=== PATIENT | male | born 1970 | race Hispanic/Latino ===

== ENCOUNTER 2018-01-11 22:03 | Emergency (ER) | payer MEDICARE, OTHER ==
[2018-01-11] MEDS ORDERED: ACETAMINOPHEN EXTRA STRENGTH 500 MG TABLET ONE (22:36)
[2018-01-11] MEDS ORDERED: GABAPENTIN 300 MG CAPSULE ONE (22:39)
[2018-01-11 22:47] LABS: BASOPHILS % (AUTO) 0.3 % (0.0-5.0); EOSINOPHILS % (AUTO) 0.2 % (0.0-8.0); HEMATOCRIT 48.6 % (42-54); MEAN CORPUSCULAR HEMOGLOBIN 28.6 pg (27.0-33.0); MEAN CORPUSCULAR VOLUME 84.3 fL (79-99); MONOCYTES % (AUTO) 10.7 % (3.0-13.0); NEUTROPHILS % (AUTO) 61.8 % (40.0-77.0); PLATELET COUNT (AUTO) 204 K/uL (130-400); RED BLOOD CELL COUNT(AUTO) 5.76 MIL/uL (4.50-6.20); RED CELL DISTRIBUTION WIDTH 16.6 % (11.0-15.5); WHITE BLOOD COUNT (AUTO) 8.8 K/uL (4.8-10.8)
[2018-01-11 22:47] LABS: APPEARANCE,URINE Clear (CLEAR); BILIRUBIN,URINE Negative (NEGATIVE); COLOR,URINE Yellow (YELLOW); GLUCOSE, URINE (UA) 500 mg/dL (NEGATIVE); KETONES,URINE Negative (NEGATIVE); LEUKOCYTE ESTERASE ,URINE Negative (NEGATIVE); NITRATE,URINE Negative (NEGATIVE); OCCULT BLOOD,URINE Negative (NEGATIVE); PH,URINE 6.5 (5.0-8.0); PROTEIN,URINE Negative (NEGATIVE); UROBILINOGEN,URINE 0.2 mg/dL (0.2-1.0)
[2018-01-11 22:54] LABS: BACTERIA,URINE None Seen /HPF (None Seen); RBC,URINE None Seen /HPF (0-1); WBC,URINE None Seen /HPF (0-1)
[2018-01-11 22:55] LABS: AMPHET/METH SCREEN,URINE NEGATIVE (NEGATIVE); BARBITURATE SCREEN, URINE NEGATIVE (NEGATIVE); BENZODIAZEPINES SCREEN,URINE NEGATIVE (NEGATIVE); CANNABINOID SCREEN,URINE NEGATIVE (NEGATIVE); COCAINE SCREEN,URINE NEGATIVE (NEGATIVE); OPIATE SCREEN,URINE NEGATIVE (NEGATIVE); PHENCYCLIDINE SCREEN,URINE NEGATIVE (NEGATIVE)
[2018-01-11 22:58] LABS: CARBON DIOXIDE 24 mmol/L (21-32); CHLORIDE 96 mmol/L (101-111); CREATININE 0.9 mg/dL (0.5-1.5); GLOMERULAR FILTR. RATE CALC 97 mL/min (>60); GLUCOSE,RANDOM 270 mg/dL (70-105); POTASSIUM 3.8 mmol/L (3.5-5.1); SODIUM SERUM 131 mmol/L (136-145); UREA NITROGEN, BLOOD 4 mg/dL (7-18)
[2018-01-11 23:02] LABS: ALANINE AMINOTRANSFERASE 27 U/L (12-78); ALBUMIN 3.4 g/dL (3.5-5.0); ALCOHOL, BLOOD 185 mg/dL (0-10); ASPARTATE AMINOTRANSFERASE 26 U/L (10-37); BILIRUBIN,TOTAL 0.6 mg/dL (0.2-1.0); SALICYLATE 5.8 mg/dL (2.8-20.0); TOTAL PROTEIN, SERUM 8.4 g/dL (6.0-8.3)
[2018-01-11 23:05] LABS: ACETAMINOPHEN < 1 mcg/mL (10-29)
[2018-01-11] MEDS ORDERED: HYDROXYZINE HCL 25 MG TABLET ONE (23:42)
[2018-01-12] MEDS ORDERED: HYDROXYZINE HCL 25 MG TABLET ONE (02:05)
[2018-01-12] MEDS ORDERED: LORAZEPAM 2 MG/ML 1 ML VIAL ONE (05:20)
== END 2018-01-12 10:09 | disposition short-term general hospital (02) ==
LOC: EDH 22:03
DX: R45.851 Suicidal ideations (principal); F10.229 Alcohol dependence with intoxication, unspecified; I10 Essential (primary) hypertension; E11.9 Type 2 diabetes mellitus without complications; F20.9 Schizophrenia, unspecified; F32.9 Major depressive disorder, single episode, unspecified; Z79.4 Long term (current) use of insulin; Z72.0 Tobacco use
CPT/HCPCS: 36415 ×2; 80053; 80305; 81001; 85025; 96374; 99285; G0480 ×4; G0481; J2060

== ENCOUNTER 2018-02-03 16:12 | Emergency (ER) | payer OTHER ==
[2018-02-03 16:37] LABS: BASOPHILS % (AUTO) 0.3 % (0.0-5.0); EOSINOPHILS % (AUTO) 0.4 % (0.0-8.0); LYMPHOCYTES % (AUTO) 24.5 % (21.0-51.0); MEAN CORPUSCULAR HEMOGLOBIN 29.1 pg (27.0-33.0); MEAN CORPUSCULAR HGB CONC 34.3 g/dL (32.0-36.0); MEAN CORPUSCULAR VOLUME 84.8 fL (79-99); MONOCYTES % (AUTO) 9.3 % (3.0-13.0); NEUTROPHILS % (AUTO) 65.5 % (40.0-77.0); PLATELET COUNT (AUTO) 333 K/uL (130-400); RED BLOOD CELL COUNT(AUTO) 4.84 MIL/uL (4.50-6.20); RED CELL DISTRIBUTION WIDTH 16.5 % (11.0-15.5); WHITE BLOOD COUNT (AUTO) 12.4 K/uL (4.8-10.8)
[2018-02-03 16:46] LABS: INR 1.01 (0.85-1.15); PARTIAL THROMBOPLASTIN TIME 26.1 SEC (26.3-35.5); PROTHROMBIN TIME 10.6 SEC (9.6-11.6)
[2018-02-03 16:50] LABS: AMPHET/METH SCREEN,URINE NEGATIVE (NEGATIVE); BARBITURATE SCREEN, URINE NEGATIVE (NEGATIVE); BENZODIAZEPINES SCREEN,URINE POSITIVE (NEGATIVE); CANNABINOID SCREEN,URINE NEGATIVE (NEGATIVE); COCAINE SCREEN,URINE NEGATIVE (NEGATIVE); OPIATE SCREEN,URINE NEGATIVE (NEGATIVE); PHENCYCLIDINE SCREEN,URINE NEGATIVE (NEGATIVE)
== END 2018-02-03 17:10 | disposition left against medical advice (07) ==
LOC: EDH 16:12
DX: S49.82XA Other specified injuries of left shoulder and upper arm, initial encounter (principal); F31.9 Bipolar disorder, unspecified; E11.9 Type 2 diabetes mellitus without complications; I10 Essential (primary) hypertension; K74.60 Unspecified cirrhosis of liver; Z72.0 Tobacco use; Z79.899 Other long term (current) drug therapy; X58.XXXA Exposure to other specified factors, initial encounter; Y93.89 Activity, other specified; Y92.89 Other specified places as the place of occurrence of the external cause; Y99.8 Other external cause status
CPT/HCPCS: 36415; 80305; 85025; 85610; 85730

== ENCOUNTER 2018-02-03 18:31 | Observation (INO) | payer OTHER ==
[~2018-02-03] VITALS: Ht 175.3 cm; Wt 89.6 kg
[2018-02-03 18:59] LABS: BASOPHILS % (AUTO) 0.5 % (0.0-5.0); EOSINOPHILS % (AUTO) 0.8 % (0.0-8.0); HEMATOCRIT 40.9 % (42-54); MEAN CORPUSCULAR HEMOGLOBIN 29.2 pg (27.0-33.0); MEAN CORPUSCULAR HGB CONC 34.4 g/dL (32.0-36.0); MEAN CORPUSCULAR VOLUME 84.8 fL (79-99); MONOCYTES % (AUTO) 7.3 % (3.0-13.0); NEUTROPHILS % (AUTO) 61.4 % (40.0-77.0); NUCLEATED RED BLOOD CELLS 0.1 % (0.0-0.19); PLATELET COUNT (AUTO) 299 K/uL (130-400); RED BLOOD CELL COUNT(AUTO) 4.82 MIL/uL (4.50-6.20); RED CELL DISTRIBUTION WIDTH 16.7 % (11.0-15.5); WHITE BLOOD COUNT (AUTO) 9.2 K/uL (4.8-10.8)
[2018-02-03 19:06] LABS: CARBON DIOXIDE 26 mmol/L (21-32); CHLORIDE 98 mmol/L (101-111); GLOMERULAR FILTR. RATE CALC 86 mL/min (>60); GLUCOSE,RANDOM 196 mg/dL (70-105); POTASSIUM 4.1 mmol/L (3.5-5.1); SODIUM SERUM 134 mmol/L (136-145); UREA NITROGEN, BLOOD 6 mg/dL (7-18)
[2018-02-03 19:08] LABS: ALANINE AMINOTRANSFERASE 24 U/L (12-78); ALBUMIN 3.2 g/dL (3.5-5.0); ASPARTATE AMINOTRANSFERASE 20 U/L (10-37); BILIRUBIN,TOTAL 0.3 mg/dL (0.2-1.0); SALICYLATE 4.9 mg/dL (2.8-20.0); TOTAL PROTEIN, SERUM 7.2 g/dL (6.0-8.3)
[2018-02-03 19:12] LABS: ACETAMINOPHEN < 1 mcg/mL (10-29)
[2018-02-03 19:14] LABS: ALCOHOL, BLOOD 293 mg/dL (0-10)
[2018-02-03] MEDS ORDERED: SODIUM CHLORIDE 0.9% 1000ML 2,000 ML IV ONE (19:19)
[2018-02-03 19:21] LABS: APPEARANCE,URINE Clear (CLEAR); BILIRUBIN,URINE Negative (NEGATIVE); COLOR,URINE Yellow (YELLOW); GLUCOSE, URINE (UA) 500 mg/dL (NEGATIVE); KETONES,URINE Negative (NEGATIVE); LEUKOCYTE ESTERASE ,URINE Negative (NEGATIVE); NITRATE,URINE Negative (NEGATIVE); OCCULT BLOOD,URINE Negative (NEGATIVE); PH,URINE 6.5 (5.0-8.0); PROTEIN,URINE Negative (NEGATIVE); UROBILINOGEN,URINE 0.2 mg/dL (0.2-1.0)
[2018-02-03] MEDS ORDERED: SODIUM CHLORIDE 0.9% 1000ML 1,000 ML IV ONE (19:26)
[2018-02-03] MEDS ORDERED: THIAMINE HCL 100 MG/ML 2ML VIAL ONE (19:26)
[2018-02-03] MEDS ORDERED: M.V.I. IV [ADULT] 10 ML VIAL IV ONE (19:27)
[2018-02-03] MEDS ORDERED: FOLIC ACID 5 MG/ML 10 ML VIAL ONE (19:28)
[2018-02-03 19:59] LABS: BACTERIA,URINE Rare /HPF (None Seen); RBC,URINE None Seen /HPF (0-1); WBC,URINE 0-1 /HPF (0-1)
[2018-02-03] MEDS ORDERED: M.V.I. IV [ADULT] 10 ML, FOLIC ACID 1 MG, THIAMINE HCL 100 MG in SODIUM CHLORIDE 0.9% 1... IV ONE (21:30)
[2018-02-03] MEDS ORDERED: LIDOCAINE HCL-MPF 1% 2ML VIAL IVP PRN (22:45)
[2018-02-03] MEDS ORDERED: POTASSIUM CHLORIDE 10% ELIXIR 20 MEQ/15 ML UDCUP PO PRN (22:45)
[2018-02-03] MEDS ORDERED: GLUCAGON 1MG KIT 1 MG ML IM PRN (22:45)
[2018-02-03] MEDS ORDERED: DEXTROSE 50%-WATER 50 ML DISP.SYRIN IV PRN (22:45)
[2018-02-03] MEDS ORDERED: POTASSIUM CHLORIDE 20MEQ/100ML 100 ML IV PRN (22:45)
[2018-02-03] MEDS ORDERED: POTASSIUM CHLORIDE 20 MEQ ERTAB PO PRN (22:45)
[2018-02-03] MEDS ORDERED: LORAZEPAM 2 MG/ML 1 ML VIAL ONE (22:59)
[2018-02-03 23:36] VITALS: BP 129/73
[2018-02-03] MEDS: CHLORDIAZEPOXIDE HCL 25 MG CAP PO PRN (23:48)
[2018-02-04] MEDS: LORAZEPAM 2 MG/ML 1 ML VIAL IVP PRN ×4 (01:04→17:24)
[2018-02-04 03:50] VITALS: BP 162/90
[2018-02-04 05:22] LABS: CREATININE 0.9 mg/dL (0.5-1.5); POTASSIUM 3.9 mmol/L (3.5-5.1)
[2018-02-04] MEDS: CHLORDIAZEPOXIDE HCL 25 MG CAP PO PRN ×6 (05:49→18:20)
[2018-02-04] MEDS: INSULIN HUMULIN R 100 UNIT/ML 3ML SQ SCH ×3 (05:53→17:23)
[2018-02-04 07:03] VITALS: BP 162/87
[2018-02-04] MEDS ORDERED: ENOXAPARIN SODIUM 40 MG/0.4 ML SYRINGE SQ SCH (09:00)
[2018-02-04] MEDS ORDERED: M.V.I. IV [ADULT] 10 ML, FOLIC ACID 1 MG, THIAMINE HCL 100 MG in SODIUM CHLORIDE 0.9% 1... IV SCH (09:00)
[2018-02-04] MEDS ORDERED: FAMOTIDINE 20MG TAB 20 MG TAB PO ONE (09:00)
[2018-02-04 11:13] VITALS: BP 167/98
[2018-02-04 16:00] VITALS: BP 175/80
== END 2018-02-04 20:00 ==
LOC: EDH 18:31 → EDHIP 20:00 → 4AH 22:33
PROVIDERS: ADMIT Internal Medicine Nephrology; ATTEND Internal Medicine Nephrology
DX: F10.229 Alcohol dependence with intoxication, unspecified (principal); E11.9 Type 2 diabetes mellitus without complications; F17.210 Nicotine dependence, cigarettes, uncomplicated; I10 Essential (primary) hypertension; K74.60 Unspecified cirrhosis of liver; F31.9 Bipolar disorder, unspecified; F20.9 Schizophrenia, unspecified; Z79.4 Long term (current) use of insulin
CPT/HCPCS: 36415 ×3; 80048; 80053; 80305; 81001; 82948 ×3; 85025 ×2; 85610; 85730; 96365; 96366; 96372; 96375; 96376; 99285; G0378 ×24; G0480 ×3; G0481; J1650; J1815 ×2; J2060 ×5; J3411 ×2; J3490 ×2; J7030 ×3

== ENCOUNTER 2018-02-23 19:35 | Emergency (ER) | payer OTHER ==
[2018-02-23 19:56] LABS: BASOPHILS % (AUTO) 0.7 % (0.0-5.0); EOSINOPHILS % (AUTO) 0.9 % (0.0-8.0); HEMATOCRIT 41.5 % (42-54); LYMPHOCYTES % (AUTO) 32.8 % (21.0-51.0); MEAN CORPUSCULAR HEMOGLOBIN 29.7 pg (27.0-33.0); MEAN CORPUSCULAR HGB CONC 34.6 g/dL (32.0-36.0); MEAN CORPUSCULAR VOLUME 85.6 fL (79-99); MONOCYTES % (AUTO) 8.1 % (3.0-13.0); NEUTROPHILS % (AUTO) 57.5 % (40.0-77.0); PLATELET COUNT (AUTO) 218 K/uL (130-400); RED BLOOD CELL COUNT(AUTO) 4.85 MIL/uL (4.50-6.20); RED CELL DISTRIBUTION WIDTH 16.4 % (11.0-15.5); WHITE BLOOD COUNT (AUTO) 8.1 K/uL (4.8-10.8)
[2018-02-23 19:58] LABS: APPEARANCE,URINE Clear (CLEAR); BILIRUBIN,URINE Negative (NEGATIVE); COLOR,URINE Yellow (YELLOW); GLUCOSE, URINE (UA) 500 mg/dL (NEGATIVE); KETONES,URINE Negative (NEGATIVE); LEUKOCYTE ESTERASE ,URINE Negative (NEGATIVE); NITRATE,URINE Negative (NEGATIVE); OCCULT BLOOD,URINE Negative (NEGATIVE); PH,URINE 5.5 (5.0-8.0); PROTEIN,URINE POS 1+ (NEGATIVE)
[2018-02-23 20:05] LABS: AMPHET/METH SCREEN,URINE NEGATIVE (NEGATIVE); BARBITURATE SCREEN, URINE NEGATIVE (NEGATIVE); BENZODIAZEPINES SCREEN,URINE NEGATIVE (NEGATIVE); CANNABINOID SCREEN,URINE NEGATIVE (NEGATIVE); COCAINE SCREEN,URINE NEGATIVE (NEGATIVE); OPIATE SCREEN,URINE NEGATIVE (NEGATIVE); PHENCYCLIDINE SCREEN,URINE NEGATIVE (NEGATIVE)
[2018-02-23 20:07] LABS: BACTERIA,URINE Rare /HPF (None Seen); RBC,URINE None Seen /HPF (0-1); SQUAMOUS EPITHELIAL CELL,UR 0-2 /HPF (0-2); WBC,URINE None Seen /HPF (0-1)
[2018-02-23 20:09] LABS: CARBON DIOXIDE 22 mmol/L (21-32); CHLORIDE 95 mmol/L (101-111); CREATININE 0.9 mg/dL (0.5-1.5); GLOMERULAR FILTR. RATE CALC 97 mL/min (>60); GLUCOSE,RANDOM 299 mg/dL (70-105); POTASSIUM 4.1 mmol/L (3.5-5.1); SODIUM SERUM 132 mmol/L (136-145); UREA NITROGEN, BLOOD 5 mg/dL (7-18)
[2018-02-23 20:13] LABS: ALANINE AMINOTRANSFERASE 49 U/L (12-78); ALBUMIN 3.4 g/dL (3.5-5.0); ALCOHOL, BLOOD 161 mg/dL (0-10); ASPARTATE AMINOTRANSFERASE 27 U/L (10-37); BILIRUBIN,TOTAL 0.6 mg/dL (0.2-1.0); SALICYLATE 3.3 mg/dL (2.8-20.0); TOTAL PROTEIN, SERUM 7.9 g/dL (6.0-8.3)
[2018-02-23 20:15] LABS: ACETAMINOPHEN < 1 mcg/mL (10-29)
== END 2018-02-24 03:03 | disposition home or self-care (01) ==
LOC: EDH 19:35
DX: F32.9 Major depressive disorder, single episode, unspecified (principal); F10.10 Alcohol abuse, uncomplicated; F41.9 Anxiety disorder, unspecified; M79.602 Pain in left arm; E11.9 Type 2 diabetes mellitus without complications; I10 Essential (primary) hypertension; F20.9 Schizophrenia, unspecified; K74.60 Unspecified cirrhosis of liver
CPT/HCPCS: 36415; 73060; 73080; 80053; 80305; 81001; 85025; 99285; G0480 ×3; G0481

== ENCOUNTER 2018-03-09 15:47 | Emergency (ER) | payer OTHER | END 2018-03-09 16:32 | disposition home or self-care (01) | LOC: EDH 15:47 | DX: S63.591A Other specified sprain of right wrist, initial encounter (principal); K74.60 Unspecified cirrhosis of liver; E11.9 Type 2 diabetes mellitus without complications; I10 Essential (primary) hypertension; Z79.4 Long term (current) use of insulin; Z72.0 Tobacco use; W01.0XXA Fall on same level from slipping, tripping and stumbling without subsequent striking against object, initial encounter; Y93.89 Activity, other specified; Y92.89 Other specified places as the place of occurrence of the external cause; Y99.8 Other external cause status | CPT/HCPCS: 29125; 73110; 73130 ==

== ENCOUNTER 2021-06-21 13:52 | Emergency (ER) | payer MEDICARE, OTHER ==
[~2021-06-21] VITALS: Ht 175.3 cm; Wt 86.2 kg
[~2021-06-21 13:52] MED LIST: ESCI20TA38 PO; FOLI1TAB15 PO; GABA600T10 PO; GLIP5TAB11 PO; LACT10SO9 PO; LEVO50TA11 PO; LIB25 PO; LORA2TAB2 PO; METF-446 PO; NIFE30TA98 PO; PROP10TA10 PO; QUET400T13 PO; THIAM100TB PO
[2021-06-21 15:47] VITALS: BP 134/77
[2021-06-21] MEDS ORDERED: ACET1TAB25 PO (16:22)
[2021-06-21] MEDS ORDERED: MORPHINE 4 MG SYG IM ONE (16:30)
[2021-06-21] MEDS ORDERED: ONDANSETRON 4MG INJ IV ONE (16:30)
== END 2021-06-21 18:14 | disposition home or self-care (01) ==
LOC: EDH 13:52
DX: G89.29 Other chronic pain (principal); M79.672 Pain in left foot; E11.51 Type 2 diabetes mellitus with diabetic peripheral angiopathy without gangrene; E78.00 Pure hypercholesterolemia, unspecified; I10 Essential (primary) hypertension; I25.10 Atherosclerotic heart disease of native coronary artery without angina pectoris; Z79.84 Long term (current) use of oral hypoglycemic drugs; Z79.899 Other long term (current) drug therapy
CPT/HCPCS: 96372; 96374; 99284; J2270; J2405

== ENCOUNTER 2022-05-06 10:26 | Observation (INO) | payer MEDICARE ==
[~2022-05-06] VITALS: Ht 175.3 cm; Wt 99.5 kg
[~2022-05-06 10:26] MED LIST changes: +ACET-2079 PO
[2022-05-06 11:29] LABS: BASOPHILS % (AUTO) 0.4 % (0.0-5.0); EOSINOPHILS % (AUTO) 0.4 % (0.0-8.0); HEMATOCRIT 34.1 % (42-54); LYMPHOCYTES % (AUTO) 17.6 % (21.0-51.0); MEAN CORPUSCULAR HEMOGLOBIN 24.9 pg (27.0-33.0); MONOCYTES % (AUTO) 5.7 % (3.0-13.0); NEUTROPHILS % (AUTO) 75.5 % (40.0-77.0); PLATELET COUNT (AUTO) 227 K/uL (130-400); RED BLOOD CELL COUNT(AUTO) 4.37 MIL/uL (4.50-6.20); RED CELL DISTRIBUTION WIDTH 16.4 % (11.0-15.5); WHITE BLOOD COUNT (AUTO) 4.9 K/uL (4.8-10.8)
[2022-05-06] MEDS ORDERED: GABAPENTIN 100 MG CAPSULE PO SCH (11:30)
[2022-05-06] MEDS ORDERED: HYDROCODONE/ACETAMINOPHEN 5/325 MG TAB PO SCH (11:30)
[2022-05-06 11:47] LABS: CREATININE 0.9 mg/dL (0.5-1.5); POTASSIUM 4.1 mmol/L (3.5-5.1)
[2022-05-06 11:50] LABS: TOTAL PROTEIN, SERUM 7.6 g/dL (6.0-8.3)
[2022-05-06 11:51] LABS: CRP QUANTITATIVE 34.2 mg/L (0.00-9.0)
[2022-05-06] MEDS: CLINDAMYCIN IVPB 600MG/50ML 50 ML IV SCH ×2 (15:17→23:14)
[2022-05-06] MEDS ORDERED: ONDANSETRON 4MG INJ IV PRN (16:30)
[2022-05-06] MEDS ORDERED: ASPIRIN 81MG CHEW TAB PO ONE (16:30)
[2022-05-06] MEDS ORDERED: ACETAMINOPHEN 325 MG TAB PO PRN (16:30)
[2022-05-06] MEDS: INSULIN HUMULIN R 100 UNIT/ML 3ML SQ SCH ×2 (16:30→21:00)
[2022-05-06] MEDS ORDERED: CLOPIDOGREL 75MG TAB PO ONE (16:30)
[2022-05-06 16:50] LABS: MAGNESIUM 1.8 mg/dL (1.80-2.40); PHOSPHORUS 3.4 mg/dL (2.5-4.9)
[2022-05-06 17:05] LABS: HEMOGLOBIN A1C 7.1 % (4.0-6.0)
[2022-05-06] MEDS: DOXYCYCLINE 100MG+NS 250ML 250 ML IV SCH (17:05)
[2022-05-06] MEDS: ACETAMINOPHEN 325 MG TAB PO PRN (17:05)
[2022-05-06] MEDS: CEFTRIAXONE 1G VIAL IV SCH (17:05)
[2022-05-06] MEDS ORDERED: MORPHINE 2 MG SYG ONE (21:00)
[2022-05-06] MEDS: FAMOTIDINE 20MG VIAL IV SCH (21:06)
[2022-05-06] MEDS: MORPHINE 2 MG SYG IVP PRN (21:06)
[2022-05-06 22:00] VITALS: BP 154/74
[2022-05-06] MEDS: DEXTROSE 5 %-0.45 % NACL 1,000 ML IV SCH (23:06)
[2022-05-07] MEDS: MORPHINE 2 MG SYG IVP PRN ×3 (00:56→16:25)
[2022-05-07] MEDS: CLINDAMYCIN IVPB 600MG/50ML 50 ML IV SCH ×3 (03:30→17:46)
[2022-05-07 03:51] VITALS: BP 167/86
[2022-05-07] MEDS: DOXYCYCLINE 100MG+NS 250ML 250 ML IV SCH ×2 (04:55→16:30)
[2022-05-07] MEDS: INSULIN HUMULIN R 100 UNIT/ML 3ML SQ SCH ×3 (06:14→16:30)
[2022-05-07 07:00] VITALS: BP 139/68
[2022-05-07 07:59] LABS: HEMATOCRIT 33.9 % (42-54); MEAN CORPUSCULAR HEMOGLOBIN 24.8 pg (27.0-33.0); MEAN CORPUSCULAR HGB CONC 32.2 g/dL (32.0-36.0); RED BLOOD CELL COUNT(AUTO) 4.4 MIL/uL (4.50-6.20); RED CELL DISTRIBUTION WIDTH 15.9 % (11.0-15.5)
[2022-05-07 08:22] LABS: INR 1.03 (0.85-1.15); PROTHROMBIN TIME 11.2 SEC (9.6-11.6)
[2022-05-07 08:23] LABS: PARTIAL THROMBOPLASTIN TIME 30.5 SEC (26.3-35.5)
[2022-05-07] MEDS: FAMOTIDINE 20MG VIAL IV SCH (08:41)
[2022-05-07 08:59] LABS: CREATININE 0.8 mg/dL (0.5-1.5); CRP QUANTITATIVE 30.8 mg/L (0.00-9.0); POTASSIUM 3.6 mmol/L (3.5-5.1)
[2022-05-07] MEDS ORDERED: CLOPIDOGREL 75MG TAB PO SCH (09:00)
[2022-05-07] MEDS ORDERED: ENOXAPARIN SODIUM 40 MG/0.4 ML SYRINGE SQ SCH (09:00)
[2022-05-07] MEDS ORDERED: ASPIRIN 81MG CHEW TAB PO SCH (09:00)
[2022-05-07] MEDS ORDERED: CLIN-141 PO (11:06)
[2022-05-07] MEDS: ACETAMINOPHEN 325 MG TAB PO PRN (11:16)
[2022-05-07] MEDS: DEXTROSE 5 %-0.45 % NACL 1,000 ML IV SCH (11:20)
[2022-05-07 12:06] VITALS: BP 152/84
[2022-05-07 16:00] VITALS: BP 154/80
[2022-05-07] MEDS ORDERED: ACETAMINOPHEN WITH CODEINE 1 TAB TAB PO PRN (16:30)
[2022-05-07] MEDS ORDERED: KETOROLAC 15MG/ML VIAL (15MG/ML) IV PRN (16:30)
[2022-05-07] MEDS: CEFTRIAXONE 1G VIAL IV SCH (16:35)
== END 2022-05-07 18:15 | disposition hospice, home (50) ==
LOC: EDH 10:26 → EDHIP 16:06 → 3AH 22:00
PROVIDERS: ADMIT Hospitalist; ATTEND Hospitalist
DX: L03.115 Cellulitis of right lower limb (principal); S80.811A Abrasion, right lower leg, initial encounter; E10.65 Type 1 diabetes mellitus with hyperglycemia; I10 Essential (primary) hypertension; I73.9 Peripheral vascular disease, unspecified; D64.9 Anemia, unspecified; T14.8XXA Other injury of unspecified body region, initial encounter; E66.9 Obesity, unspecified; E78.00 Pure hypercholesterolemia, unspecified; Z68.32 Body mass index [BMI] 32.0-32.9, adult; Z79.4 Long term (current) use of insulin; Z79.84 Long term (current) use of oral hypoglycemic drugs; Z89.512 Acquired absence of left leg below knee; Z89.612 Acquired absence of left leg above knee; X58.XXXA Exposure to other specified factors, initial encounter; Y92.89 Other specified places as the place of occurrence of the external cause; Y93.89 Activity, other specified; Y99.8 Other external cause status
CPT/HCPCS: 96365; 96366 ×2; 96375; 96367; 99285; 83036; 82550; 83735; 84100; 84484; 80053; 83880; 85025; 87040 ×2; 87070; 87076; 87077; 82948 ×5; 83605 ×2; 87186; 86140 ×2; 36415 ×2; 73610; 71045; 73562; 93971; 93926; 84145 ×2; 96376; 96372; 80048; 85027; 85610; 85730; 92610; G0378 ×25; J3490 ×8; J7042; J0696 ×2; J1815; J1650; J1885

== ENCOUNTER 2022-10-11 20:57 | Emergency (ER) | payer OTHER ==
[~2022-10-11 20:57] MED LIST changes: -ACET-2079 PO; -ESCI20TA38 PO; -GABA600T10 PO; -GLIP5TAB11 PO; -LIB25 PO; -LORA2TAB2 PO; -METF-446 PO; -PROP10TA10 PO; -QUET400T13 PO
[2022-10-11] MEDS ORDERED: MORPHINE 4 MG SYG IVP ONE (21:30)
[2022-10-11] MEDS ORDERED: ONDANSETRON 4MG INJ IVP ONE (21:30)
[2022-10-11] MEDS ORDERED: 0.9%NACL 1000ML 1,000 ML IV ONE (21:30)
[2022-10-11 21:58] LABS: BASOPHILS % (AUTO) 0.3 % (0.0-5.0); LYMPHOCYTES % (AUTO) 10.6 % (21.0-51.0); MEAN CORPUSCULAR HEMOGLOBIN 25.2 pg (27.0-33.0); MEAN CORPUSCULAR HGB CONC 31.8 g/dL (32.0-36.0); MONOCYTES % (AUTO) 5.9 % (3.0-13.0); NEUTROPHILS % (AUTO) 81.5 % (40.0-77.0); PLATELET COUNT (AUTO) 621 K/uL (130-400); RED BLOOD CELL COUNT(AUTO) 4.81 MIL/uL (4.50-6.20); RED CELL DISTRIBUTION WIDTH 17.5 % (11.0-15.5); WHITE BLOOD COUNT (AUTO) 18.3 K/uL (4.8-10.8)
[2022-10-11 22:06] LABS: CREATININE 0.9 mg/dL (0.5-1.5); POTASSIUM 4.1 mmol/L (3.5-5.1)
[2022-10-11 22:13] LABS: ALBUMIN 2.9 g/dL (3.5-5.0); TOTAL PROTEIN, SERUM 8.6 g/dL (6.0-8.3)
[2022-10-11] MEDS ORDERED: HYDROMORPHONE 1 MG INJ IVP ONE (22:30)
[2022-10-11] MEDS ORDERED: CEPH500B PO (23:39)
[2022-10-11] MEDS ORDERED: SULF1TAB42 PO (23:39)
[2022-10-12] MEDS ORDERED: HALOPERIDOL INJ 5 MG/ML VIAL IV SCH
[2022-10-12 00:18] LABS: APPEARANCE,URINE CLEAR (CLEAR); BILIRUBIN,URINE NEGATIVE (NEGATIVE); COLOR,URINE LIGHT-YELLOW (YELLOW); GLUCOSE, URINE (UA) NEGATIVE (NEGATIVE); KETONES,URINE 20 mg/dL (NEGATIVE); LEUKOCYTE ESTERASE ,URINE NEGATIVE Leu/uL (NEGATIVE); NITRATE,URINE NEGATIVE (NEGATIVE); OCCULT BLOOD,URINE MODERATE (NEGATIVE); PH,URINE 6.5 (5.0-8.0); PROTEIN,URINE 70 mg/dL (NEGATIVE); UROBILINOGEN,URINE 0.2 mg/dL (0.2-1.0)
[2022-10-12 00:23] LABS: MUCUS,URINE RARE LPF (None Seen); SQUAMOUS EPITHELIAL CELL,UR RARE /HPF (0-2)
[2022-10-12] MEDS ORDERED: ACET-2079 PO (08:40)
[2022-10-12] MEDS ORDERED: CEFTRIAXONE 1G VIAL IVP ONE (09:00)
[2022-10-12] MEDS ORDERED: HYDROCODONE/ACETAMINOPHEN 10/325 MG TAB PO ONE (09:00)
[2022-10-12 09:45] VITALS: BP 152/78
== END 2022-10-12 10:01 | disposition home or self-care (01) ==
LOC: EDH 20:57
DX: G54.6 Phantom limb syndrome with pain (principal); L03.317 Cellulitis of buttock; L03.115 Cellulitis of right lower limb; E78.00 Pure hypercholesterolemia, unspecified; F31.9 Bipolar disorder, unspecified; F41.9 Anxiety disorder, unspecified; I10 Essential (primary) hypertension; K21.9 Gastro-esophageal reflux disease without esophagitis; Z79.899 Other long term (current) drug therapy; Z98.890 Other specified postprocedural states; Z89.611 Acquired absence of right leg above knee; Z89.612 Acquired absence of left leg above knee
CPT/HCPCS: 99285; 96374; 96375 ×2; 96361; 80053; 85025; 87040 ×2; 83605; 81001; 36415; 93005; J1170; J1630; J2405; J2270; J0696

== ENCOUNTER 2022-10-20 17:51 | Emergency (ER) | payer OTHER ==
[~2022-10-20 17:51] MED LIST changes: +ACET-2079 PO; +CEPH500B PO; +SULF1TAB42 PO
[2022-10-20 17:52] VITALS: BP 103/61
[2022-10-20] MEDS ORDERED: ACETAMINOPHEN 325 MG TAB PO ONE (20:30)
[2022-10-20] MEDS ORDERED: LIDOP TD (20:40)
== END 2022-10-20 21:23 | disposition home or self-care (01) ==
LOC: EDH 17:51
DX: M54.50 Low back pain, unspecified (principal); R19.7 Diarrhea, unspecified; R11.0 Nausea; F41.9 Anxiety disorder, unspecified; E11.9 Type 2 diabetes mellitus without complications; K21.9 Gastro-esophageal reflux disease without esophagitis; I10 Essential (primary) hypertension; E78.00 Pure hypercholesterolemia, unspecified; F31.9 Bipolar disorder, unspecified; Z79.899 Other long term (current) drug therapy
CPT/HCPCS: 72100; 72170; 72220

== ENCOUNTER 2022-10-23 18:02 | Emergency (ER) | payer OTHER ==
[~2022-10-23] VITALS: Ht 162.6 cm; Wt 68.0 kg
[~2022-10-23 18:02] MED LIST changes: +LIDOP TD
[2022-10-23 19:10] LABS: BASOPHILS % (AUTO) 0.4 % (0.0-5.0); EOSINOPHILS % (AUTO) 1.3 % (0.0-8.0); HEMATOCRIT 30.1 % (42-54); LYMPHOCYTES % (AUTO) 21.3 % (21.0-51.0); MEAN CORPUSCULAR HEMOGLOBIN 25.9 pg (27.0-33.0); MEAN CORPUSCULAR HGB CONC 31.2 g/dL (32.0-36.0); MEAN CORPUSCULAR VOLUME 82.9 fL (79-99); MONOCYTES % (AUTO) 8.5 % (3.0-13.0); NEUTROPHILS % (AUTO) 67.8 % (40.0-77.0); PLATELET COUNT (AUTO) 209 K/uL (130-400); RED BLOOD CELL COUNT(AUTO) 3.63 MIL/uL (4.50-6.20); RED CELL DISTRIBUTION WIDTH 19.5 % (11.0-15.5); WHITE BLOOD COUNT (AUTO) 5.5 K/uL (4.8-10.8)
[2022-10-23 19:24] LABS: CREATININE 1.3 mg/dL (0.5-1.5)
[2022-10-23 19:29] LABS: ALBUMIN 2.4 g/dL (3.5-5.0); TOTAL PROTEIN, SERUM 6.8 g/dL (6.0-8.3)
[2022-10-23] MEDS ORDERED: ZOSYN 3.375GM +NS 50ML IVPB ONE (19:30)
[2022-10-23] MEDS ORDERED: MORPHINE 4 MG SYG IVP ONE (20:00)
[2022-10-23] MEDS ORDERED: ONDANSETRON 4MG INJ IVP ONE (20:00)
[2022-10-23] MEDS ORDERED: 0.9%NACL 1000ML 1,000 ML IV ONE (20:00)
[2022-10-23 20:21] LABS: ERYTHROCYTE SEDIMENTATION RATE 73 MM/HR (0-20)
[2022-10-23] MEDS ORDERED: AMOX1TAB16 PO (21:27)
[2022-10-23] MEDS ORDERED: ACETAMINOPHEN 500 MG TABLET PO ONE (21:30)
[2022-10-24 00:02] VITALS: BP 132/74
== END 2022-10-24 00:30 | disposition home or self-care (01) ==
LOC: EDH 18:02
DX: L03.115 Cellulitis of right lower limb (principal); E11.9 Type 2 diabetes mellitus without complications; I10 Essential (primary) hypertension; E78.00 Pure hypercholesterolemia, unspecified; Z20.822 Contact with and (suspected) exposure to COVID-19
CPT/HCPCS: 99284; 96365; 96375; 87635; 96366; 80053; 85025; 85651; 87804 ×2; 83605; 36415; 73562; C9803; J7030; J2405; J2270; J2543

== ENCOUNTER 2022-10-27 20:52 | Emergency (ER) | payer OTHER ==
[~2022-10-27] VITALS: Ht 137.2 cm; Wt 72.6 kg
[~2022-10-27 20:52] MED LIST changes: +AMOX1TAB16 PO
[2022-10-27 22:20] LABS: BASOPHILS % (AUTO) 0.5 % (0.0-5.0); EOSINOPHILS % (AUTO) 1.6 % (0.0-8.0); HEMATOCRIT 35.3 % (42-54); LYMPHOCYTES % (AUTO) 21.5 % (21.0-51.0); MEAN CORPUSCULAR HEMOGLOBIN 25.9 pg (27.0-33.0); MEAN CORPUSCULAR HGB CONC 31.4 g/dL (32.0-36.0); MEAN CORPUSCULAR VOLUME 82.5 fL (79-99); MONOCYTES % (AUTO) 8.1 % (3.0-13.0); NEUTROPHILS % (AUTO) 67.5 % (40.0-77.0); PLATELET COUNT (AUTO) 180 K/uL (130-400); RED BLOOD CELL COUNT(AUTO) 4.28 MIL/uL (4.50-6.20); WHITE BLOOD COUNT (AUTO) 6.3 K/uL (4.8-10.8)
[2022-10-27] MEDS ORDERED: CALDOLOR 800MG+NS 250ML 250 ML IV SCH (22:30)
[2022-10-27 22:34] LABS: CREATININE 1.2 mg/dL (0.5-1.5); POTASSIUM 4.3 mmol/L (3.5-5.1)
[2022-10-27 22:39] LABS: ALBUMIN 3.1 g/dL (3.5-5.0); TOTAL PROTEIN, SERUM 7.3 g/dL (6.0-8.3)
[2022-10-27] MEDS ORDERED: ACETAMINOPHEN 500 MG TABLET PO ONE (23:00)
[2022-10-27] MEDS ORDERED: KETOROLAC 15MG/ML VIAL (15MG/ML) IV ONE (23:00)
[2022-10-28] MEDS ORDERED: ACET-2079 PO (00:37)
[2022-10-28 00:40] VITALS: BP 134/74
== END 2022-10-28 01:06 ==
LOC: EDH 20:52
DX: L03.115 Cellulitis of right lower limb (principal); T87.89 Other complications of amputation stump; E11.51 Type 2 diabetes mellitus with diabetic peripheral angiopathy without gangrene; I10 Essential (primary) hypertension; Z79.899 Other long term (current) drug therapy; Z98.890 Other specified postprocedural states
CPT/HCPCS: 99284; 80053; 85025; 87040 ×2; 83605; 36415; 73562; 96374; J1885

== ENCOUNTER 2022-12-03 18:39 | Emergency (ER) | payer OTHER ==
[2022-12-03] MEDS ORDERED: KETOROLAC 15MG/ML VIAL (15MG/ML) IV ONE (19:00)
[2022-12-03] MEDS ORDERED: 0.9%NACL 1000ML 1,000 ML IV ONE (19:00)
[2022-12-03 19:16] LABS: HEMATOCRIT 37.2 % (42-54); MEAN CORPUSCULAR HEMOGLOBIN 27.9 pg (27.0-33.0); MEAN CORPUSCULAR HGB CONC 32.5 g/dL (32.0-36.0); MEAN CORPUSCULAR VOLUME 85.7 fL (79-99); PLATELET COUNT (AUTO) 233 K/uL (130-400); RED BLOOD CELL COUNT(AUTO) 4.34 MIL/uL (4.50-6.20); RED CELL DISTRIBUTION WIDTH 18.1 % (11.0-15.5); WHITE BLOOD COUNT (AUTO) 6.9 K/uL (4.8-10.8)
[2022-12-03 19:20] LABS: BASOPHILS % (AUTO) 0.3 % (0.0-5.0); EOSINOPHILS % (AUTO) 2.6 % (0.0-8.0); LYMPHOCYTES % (AUTO) 20.9 % (21.0-51.0); MONOCYTES % (AUTO) 8.8 % (3.0-13.0); NEUTROPHILS % (AUTO) 66.8 % (40.0-77.0)
[2022-12-03 19:26] LABS: CREATININE 1.1 mg/dL (0.5-1.5); POTASSIUM 3.4 mmol/L (3.5-5.1)
[2022-12-03 19:30] LABS: ALBUMIN 3.3 g/dL (3.5-5.0); CRP QUANTITATIVE 15.2 mg/L (0.00-9.0); TOTAL PROTEIN, SERUM 7.4 g/dL (6.0-8.3)
[2022-12-03 19:36] LABS: HEMOGLOBIN A1C 7.4 % (4.0-6.0)
[2022-12-03] MEDS ORDERED: METF-444 PO (22:19)
[2022-12-03] MEDS ORDERED: CIPR-278 PO (22:19)
[2022-12-03] MEDS ORDERED: ZOSYN 3.375GM +NS 50ML IVPB ONE (22:30)
[2022-12-03] MEDS ORDERED: VANCOMYCIN 1G VIAL IVPB ONE (22:30)
[2022-12-03] MEDS ORDERED: VANCOMYCIN 1G/250ML KIT 250 ML IV ONE (22:43)
[2022-12-04 02:41] VITALS: BP 154/87
[2022-12-05] MEDS ORDERED: TRAM50TA4 PO (09:02)
[2022-12-05] MEDS ORDERED: SERT-439 PO (09:02)
[2022-12-05] MEDS ORDERED: TRAZ150 PO (09:02)
[2022-12-05] MEDS ORDERED: LORA2TAB80 PO (09:02)
[2022-12-05] MEDS ORDERED: HYD50 PO (09:02)
[2022-12-05] MEDS ORDERED: BUSP15 PO (09:02)
[2022-12-05] MEDS ORDERED: QUET100T34 PO (09:02)
== END 2022-12-04 03:08 | disposition home or self-care (01) ==
LOC: EDH 18:39
DX: T87.43 Infection of amputation stump, right lower extremity (principal); Z89.611 Acquired absence of right leg above knee; I10 Essential (primary) hypertension; E11.9 Type 2 diabetes mellitus without complications; E78.00 Pure hypercholesterolemia, unspecified; Z79.899 Other long term (current) drug therapy; Z98.890 Other specified postprocedural states; Z79.84 Long term (current) use of oral hypoglycemic drugs
CPT/HCPCS: 99284; 96365; 96366; 96361; 96375; 83036; 80053; 85025; 85651; 87040 ×2; 83605 ×2; 86140; 36415; 73552; 72100; 96368; J7030; J2543; J3370; J1885

== ENCOUNTER 2022-12-04 13:10 | Inpatient (IN) | payer OTHER ==
[~2022-12-04] VITALS: Ht 73.7 cm; Wt 70.6 kg
[~2022-12-04 13:10] MED LIST changes: +CIPR-278 PO; +METF-444 PO
[2022-12-04] MEDS ORDERED: KETOROLAC 60 MG VIAL (30MG/ML) IM ONE (13:30)
[2022-12-04] MEDS ORDERED: LORAZEPAM 2 MG/ML 1 ML VIAL IM ONE (14:30)
[2022-12-04] MEDS ORDERED: 0.9%NACL 1000ML 1,000 ML IV SCH (16:00)
[2022-12-04] MEDS ORDERED: MAGNESIUM 2GM PREMIX 50ML 50 ML IV PRN (21:30)
[2022-12-04] MEDS ORDERED: ZOLPIDEM TARTRATE 5 MG TAB PO PRN (21:30)
[2022-12-04] MEDS ORDERED: POTASSIUM CHLORIDE 20MEQ/100ML 100 ML IV PRN (21:30)
[2022-12-04] MEDS ORDERED: LOSARTAN 50 MG TABLET PO SCH (21:30)
[2022-12-04] MEDS ORDERED: LACTULOSE 20 GM/30 ML UDCUP PO PRN (21:30)
[2022-12-04] MEDS ORDERED: ACETAMINOPHEN 325 MG TAB PO PRN ×2 (21:30)
[2022-12-04] MEDS ORDERED: POTASSIUM CHLORIDE 10% ELIXIR 20 MEQ/15 ML UDCUP PO PRN (21:30)
[2022-12-04] MEDS ORDERED: LIDOCAINE HCL-MPF 1% 2ML VIAL IV PRN (21:30)
[2022-12-04] MEDS ORDERED: HYDROCODONE/ACETAMINOPHEN 5/325 MG TAB PO PRN ×2 (21:30)
[2022-12-04] MEDS ORDERED: KCL 20 MEQ ERTAB PO PRN (21:30)
[2022-12-04] MEDS ORDERED: ONDANSETRON 4MG INJ IV PRN (21:30)
[2022-12-04 22:19] LABS: APPEARANCE,URINE CLEAR (CLEAR); BILIRUBIN,URINE NEGATIVE (NEGATIVE); COLOR,URINE LIGHT-YELLOW (YELLOW); GLUCOSE, URINE (UA) NEGATIVE (NEGATIVE); KETONES,URINE NEGATIVE (NEGATIVE); LEUKOCYTE ESTERASE ,URINE NEGATIVE Leu/uL (NEGATIVE); NITRATE,URINE NEGATIVE (NEGATIVE); OCCULT BLOOD,URINE NEGATIVE (NEGATIVE); PROTEIN,URINE 10 mg/dL (NEGATIVE); UROBILINOGEN,URINE 0.2 mg/dL (0.2-1.0)
[2022-12-04 22:25] LABS: MUCUS,URINE RARE LPF (None Seen); RBC,URINE 0-1 /HPF (0-1); SQUAMOUS EPITHELIAL CELL,UR RARE /HPF (0-2)
[2022-12-04 22:32] LABS: BASOPHILS % (AUTO) 0.4 % (0.0-5.0); HEMATOCRIT 35.6 % (42-54); LYMPHOCYTES % (AUTO) 29.6 % (21.0-51.0); MEAN CORPUSCULAR HEMOGLOBIN 27.9 pg (27.0-33.0); MEAN CORPUSCULAR HGB CONC 32.3 g/dL (32.0-36.0); MEAN CORPUSCULAR VOLUME 86.4 fL (79-99); MONOCYTES % (AUTO) 8.6 % (3.0-13.0); PLATELET COUNT (AUTO) 186 K/uL (130-400); RED BLOOD CELL COUNT(AUTO) 4.12 MIL/uL (4.50-6.20); RED CELL DISTRIBUTION WIDTH 17.3 % (11.0-15.5); WHITE BLOOD COUNT (AUTO) 4.8 K/uL (4.8-10.8)
[2022-12-04 22:43] LABS: PROTHROMBIN TIME 10.9 SEC (9.6-11.6)
[2022-12-04 22:44] LABS: PARTIAL THROMBOPLASTIN TIME 28.5 SEC (26.3-35.5)
[2022-12-04 22:45] LABS: HEMOGLOBIN A1C 7.3 % (4.0-6.0); POTASSIUM 3.7 mmol/L (3.5-5.1)
[2022-12-04 22:50] LABS: ALBUMIN 2.7 g/dL (3.5-5.0); MAGNESIUM 1.7 mg/dL (1.80-2.40); PHOSPHORUS 3.6 mg/dL (2.5-4.9); TOTAL PROTEIN, SERUM 6.5 g/dL (6.0-8.3)
[2022-12-05 04:00] VITALS: BP 138/74
[2022-12-05 08:00] VITALS: BP 157/81
[2022-12-05] MEDS ORDERED: LOSARTAN 50 MG TABLET PO SCH (09:00)
[2022-12-05] MEDS ORDERED: LACTULOSE 20 GM/30 ML UDCUP PO SCH (09:00)
[2022-12-05] MEDS ORDERED: FAMOTIDINE 20MG TAB PO SCH (09:00)
[2022-12-05] MEDS ORDERED: ASPIRIN 81MG CHEW TAB PO SCH (09:00)
[2022-12-05] MEDS ORDERED: QUET100T34 PO (09:02)
[2022-12-05] MEDS ORDERED: TRAZ150 PO (09:02)
[2022-12-05] MEDS ORDERED: HYD50 PO (09:02)
[2022-12-05] MEDS ORDERED: BUSP15 PO (09:02)
[2022-12-05] MEDS ORDERED: TRAM50TA4 PO (09:02)
[2022-12-05] MEDS ORDERED: LORA2TAB80 PO (09:02)
[2022-12-05] MEDS ORDERED: SERT-439 PO (09:02)
[2022-12-05] MEDS ORDERED: TRAZODONE HCL 50 MG TAB PO PRN (11:00)
[2022-12-05] MEDS ORDERED: HYDROXYZINE 25 MG TABLET PO PRN (11:00)
[2022-12-05] MEDS ORDERED: LORAZEPAM 1 MG TABLET PO ONE (11:00)
[2022-12-05 11:49] VITALS: BP 145/71
[2022-12-05] MEDS ORDERED: BUSPIRONE HCL 5 MG TABLET PO SCH (14:00)
[2022-12-05] MEDS ORDERED: AMOX/CLAV 875/125MG TAB PO SCH (21:00)
[2022-12-05] MEDS ORDERED: LORAZEPAM 1 MG TABLET PO SCH (21:00)
[2022-12-06] MEDS ORDERED: LEVOTHYROXINE 50 MCG TABLET PO SCH (06:30)
[2022-12-06] MEDS ORDERED: NIFEDIPINE ER 30 MG TAB PO SCH (09:00)
[2022-12-06] MEDS ORDERED: FOLIC ACID 1 MG TABLET PO SCH (09:00)
== END 2022-12-05 12:15 | disposition left against medical advice (07) | DRG 566 ==
LOC: EDH 13:10 → EDHIP 21:27 → 3BH 22:00
PROVIDERS: ADMIT Internal Medicine; ATTEND Internal Medicine
DX: T87.89 Other complications of amputation stump (principal); Z20.822 Contact with and (suspected) exposure to COVID-19; K74.60 Unspecified cirrhosis of liver; E11.51 Type 2 diabetes mellitus with diabetic peripheral angiopathy without gangrene; M81.0 Age-related osteoporosis without current pathological fracture; F20.9 Schizophrenia, unspecified; F17.210 Nicotine dependence, cigarettes, uncomplicated; F43.10 Post-traumatic stress disorder, unspecified; I10 Essential (primary) hypertension; G89.29 Other chronic pain; Z82.49 Family history of ischemic heart disease and other diseases of the circulatory system; Z82.62 Family history of osteoporosis; Z89.611 Acquired absence of right leg above knee; Z89.612 Acquired absence of left leg above knee; Y79.3 Surgical instruments, materials and orthopedic devices (including sutures) associated with adverse incidents; Y83.5 Amputation of limb(s) as the cause of abnormal reaction of the patient, or of later complication, without mention of misadventure at the time of the procedure
CPT/HCPCS: 36415; 80053; 81001; 82140; 83036; 83735; 84100; 85025; 85610; 85730; 87635; G0378; J1885; J2060

== ENCOUNTER 2022-12-21 09:14 | Emergency (ER) | payer OTHER ==
[~2022-12-21] VITALS: Ht 162.6 cm; Wt 69.4 kg
[~2022-12-21 09:14] MED LIST changes: +BUSP15 PO; -CEPH500B PO; +HYD50 PO; +LORA2TAB80 PO; +QUET100T34 PO; +SERT-439 PO; -SULF1TAB42 PO; +TRAM50TA4 PO; +TRAZ150 PO
[2022-12-21 09:49] LABS: BASOPHILS % (AUTO) 0.4 % (0.0-5.0); EOSINOPHILS % (AUTO) 2.7 % (0.0-8.0); HEMATOCRIT 42.7 % (42-54); LYMPHOCYTES % (AUTO) 16.7 % (21.0-51.0); MEAN CORPUSCULAR HEMOGLOBIN 27.9 pg (27.0-33.0); MEAN CORPUSCULAR HGB CONC 32.3 g/dL (32.0-36.0); MEAN CORPUSCULAR VOLUME 86.3 fL (79-99); MONOCYTES % (AUTO) 6.3 % (3.0-13.0); NEUTROPHILS % (AUTO) 72.9 % (40.0-77.0); PLATELET COUNT (AUTO) 171 K/uL (130-400); RED BLOOD CELL COUNT(AUTO) 4.95 MIL/uL (4.50-6.20); RED CELL DISTRIBUTION WIDTH 15.9 % (11.0-15.5); WHITE BLOOD COUNT (AUTO) 6.8 K/uL (4.8-10.8)
[2022-12-21 10:00] LABS: POTASSIUM 4.7 mmol/L (3.5-5.1)
[2022-12-21] MEDS ORDERED: IBUPROFEN 600 MG TABLET PO ONE (10:00)
[2022-12-21 10:05] LABS: ALBUMIN 3.5 g/dL (3.5-5.0); TOTAL PROTEIN, SERUM 8.3 g/dL (6.0-8.3)
[2022-12-21] MEDS ORDERED: HYDROCODONE/ACETAMINOPHEN 5/325 MG TAB PO ONE (11:00)
[2022-12-21] MEDS ORDERED: INSULIN HUMULIN R 100 UNIT/ML 3ML SQ ONE (11:30)
[2022-12-21] MEDS ORDERED: SULF1TAB42 PO (11:35)
[2022-12-21 11:55] VITALS: BP 133/69
== END 2022-12-21 13:10 | disposition home or self-care (01) ==
LOC: EDH 09:14
DX: T87.43 Infection of amputation stump, right lower extremity (principal); F41.9 Anxiety disorder, unspecified; F20.9 Schizophrenia, unspecified; F31.9 Bipolar disorder, unspecified; I10 Essential (primary) hypertension; Z79.1 Long term (current) use of non-steroidal anti-inflammatories (NSAID); Z79.84 Long term (current) use of oral hypoglycemic drugs; Z79.899 Other long term (current) drug therapy; Y83.8 Other surgical procedures as the cause of abnormal reaction of the patient, or of later complication, without mention of misadventure at the time of the procedure
CPT/HCPCS: 99283; 80053; 85025; 36415; J1815